=== PATIENT | male | born 1965 | race Caucasian/White ===

== ENCOUNTER 2020-02-03 23:04 | Emergency (ER) | payer SELFPAY ==
[~2020-02-03] VITALS: Ht 162.6 cm; Wt 63.6 kg
--- NOTE | 2020-02-03 23:28 | PHYS DOC ---
General Adult EDM: Chief Complaint: ABDOMINAL PAIN HPI: HPI: The history was obtained from the patient. Patient is a 55-year-old male with PMH significant for appendectomy, methamphetamine use who presents with a chief complaint of right lower quadrant abdominal pain that began suddenly 90 minutes ago. He states he was at rest when the pain began. He states he last smoked methamphetamine earlier this morning. Denies any other drug use. States he has had nausea without vomiting. Denies any dysuria, hematuria, polyuria. Denies history of kidney stone. Denies syncope. States he does not drink alcohol daily. Denies chest pain or shortness of breath. Denies cough or fever. No complaints. Review of Systems: Review of Systems: Constitutional: Denies fever or chills. [] Eyes: Denies change in visual acuity. [] HENT: Denies nasal congestion or sore throat. [] Respiratory: Denies cough or shortness of breath. [] Cardiovascular: Denies chest pain or edema. [] GI: Positive for abdominal pain : Denies dysuria. [] Musculoskeletal: Denies back pain or joint pain. [] Integument: Denies rash. [] Neurologic: Denies headache, focal weakness or sensory changes. [] Endocrine: Denies polyuria or polydipsia. [] Lymphatic: Denies swollen glands. [] Psychiatric: Denies depression or anxiety. [] Heart Score: Risk Factors: Risk Factors: DM, Current or recent (<one month) smoker, HTN, HLP, family history of CAD, obesity. Risk Scores: Score 0 - 3: 2.5% MACE over next 6 weeks - Discharge Home Score 4 - 6: 20.3% MACE over next 6 weeks - Admit for Clinical Observation Score 7 - 10: 72.7% MACE over next 6 weeks - Early Invasive Strategies Physical Exam: PE: Constitutional: Well developed, well nourished, no acute distress, non-toxic appearance. [] HENT: Normocephalic, atraumatic, bilateral external ears normal, oropharynx moist, no oral exudates, nose normal. [] Eyes: PERRLA, EOMI, conjunctiva normal, no discharge. [] Neck: Normal range of motion, no tenderness, supple, no stridor. [] Cardiovascular:Heart rate regular rhythm, no murmur [] Lungs & Thorax: Bilateral breath sounds clear to auscultation [] Abdomen: Soft, nontender, nonacute abdomen. No involuntary guarding or rigidity noted. No acute peritonitis. Skin: Warm, dry, no erythema, no rash. [] Back: No tenderness, no CVA tenderness. [] Extremities: No tenderness, no cyanosis, no clubbing, ROM intact, no edema. [] Neurologic: Alert and oriented X 3, normal motor function, normal sensory function, no focal deficits noted. [] Psychologic: Affect normal, judgement normal, mood normal. [] Current Patient Data: Labs: Laboratory Tests Test 02/03/20 23:43 02/03/20 23:46 02/04/20 00:37 Sodium Level 140 mmol/L Potassium Level 3.8 mmol/L Chloride Level 102 mmol/L Carbon Dioxide Level 29 mmol/L Anion Gap 9 Blood Urea Nitrogen 14 mg/dL Creatinine 1.2 mg/dL Estimated GFR (Cockcroft-Gault) 62.9 BUN/Creatinine Ratio 12 Glucose Level 109 mg/dL Calcium Level 10.3 mg/dL Total Bilirubin 0.7 mg/dL Aspartate Amino Transf (AST/SGOT) 18 U/L Alanine Aminotransferase (ALT/SGPT) 27 U/L Alkaline Phosphatase 133 U/L Total Protein 8.0 g/dL Albumin 3.8 g/dL Albumin/Globulin Ratio 0.9 Lipase 94 U/L Urine Collection Type Unknown Urine Color Yellow Urine Clarity Clear Urine pH 8.5 Urine Specific [place] 1.015 Urine Protein Negative mg/dL Urine Glucose (UA) Negative mg/dL Urine Ketones (Stick) Trace mg/dL Urine Blood Negative Urine Nitrite Negative Urine Bilirubin Negative Urine Urobilinogen Dipstick 0.2 mg/dL Urine Leukocyte Esterase Negative Urine RBC Occ /HPF Urine WBC 0 /HPF Urine Squamous Epithelial Cells None /LPF Urine Amorphous Sediment Present /HPF Urine Bacteria 0 /HPF Urine Mucus Slight /LPF Urine Opiates Screen Neg Urine Methadone Screen Neg Urine Barbiturates Neg Urine Phencyclidine Screen Neg Urine Amphetamine/Methamphetamine Neg Urine Benzodiazepines Screen Neg Urine Cocaine Screen Neg Urine Cannabinoids Screen Pos Urine Ethyl Alcohol Neg White Blood Count 16.7 x10^3/uL Red Blood Count 4.95 x10^6/uL Hemoglobin 15.0 g/dL Hematocrit 43.5 % Mean Corpuscular Volume 88 fL Mean Corpuscular Hemoglobin 30 pg Mean Corpuscular Hemoglobin Concent 35 g/dL Red Cell Distribution Width 13.3 % Platelet Count 323 x10^3/uL Segmented Neutrophils % 62 % Band Neutrophils % 2 % Lymphocytes % 24 % Monocytes % 7 % Eosinophils % 5 % Platelet Estimate Adequate Current Medications Medications (Trade) Dose Ordered Sig/[place] Route PRN Reason Start Time Stop Time Status Last Admin Dose Admin Ringer's Solution 1,000 ml @ 1,000 mls/hr 1X ONCE IV 02/03/20 23:45 02/04/20 00:44 DC 02/04/20 00:18 Ondansetron HCl (Zofran) 4 mg 1X ONCE IVP 02/04/20 00:00 02/04/20 00:09 DC 02/04/20 00:18 Ketorolac Tromethamine (Toradol 15mg Vial) 15 mg 1X ONCE IVP 02/04/20 00:00 02/04/20 00:09 DC 02/04/20 00:18 EKG: EKG: EKG consistent with sinus bradycardia. Ventricular 49 bpm. Intervals normal. [place] normal. No acute ischemic changes appreciated. [] Radiology/Procedures: Radiology/Procedures: [][facility] [address] [place] [address] IMAGING REPORT Signed PATIENT: MARCELA VICTORIA AACCOUNT: [id number] : 1965 LOCATION: ER AGE: 55 SEX: M EXAM STATUS: REG ER ORD. PHYSICIAN: MARIO ABREU DO REASON: RLQ pain. h/o appendectomy. eval for kidney stone PROCEDURE: CT ABDOMEN PELVIS WO CONTRAST Study: CT abdomen/pelvis without intravenous contrast Indication: Right lower quadrant pain. Comparison: None. Technique: Helical CT imaging performed of the abdomen and pelvis without the use of intravenous contrast. Sagittal and coronal reformats were obtained. One or more of the following individualized dose reduction techniques were utilized for this examination: 1. Automated exposure control 2. Adjustment of the mA and/or kV according to patient size 3. Use of iterative reconstruction technique. Findings: Inherently limited evaluation without intravenous contrast. A portion of the study is degraded due to the patient's arms overlying the lower chest/upper abdomen. Chest: No acute abnormality. Liver: Limited assessment due to the absence of contrast and streak artifact. No obvious parenchymal abnormality is identified. Gallbladder/Biliary Tree: A few small, suspended gallstones and possible biliary sludge. No CT findings to suggest acute cholecystitis. Nondilated biliary tree. Pancreas: Unremarkable. Spleen: Within normal limits for size. Adrenal Glands: Unremarkable. Kidneys/Ureters/Bladder: Edematous and prominent right kidney and mild/moderate hydroureteronephrosis in the setting of a 3 mm stone at the ureterovesicular junction. Intrarenal stones at the lower pole the left kidney and a punctate intrarenal stone at the lower pole of the right kidney. No collecting system dilatation on the left. Circumferential urinary bladder wall thickening likely accentuated by underdistention. Reproductive Organs: Central prostatic mineralization. The prostate measures approximately 3.6 cm transverse. Colon: Mild volume well-formed stool burden. Appendix: Surgically absent. Small Bowel: Nonobstructed. Stomach: Distended with ingested material. No gastric wall emphysema. Vasculature: Scattered calcific atherosclerosis. Nonaneurysmal aorta. Lymph Nodes: Within normal limits. Peritoneum and Body Wall: No free fluid or gas. Bones: A few chronic right lumbar transverse process fractures. No acute abnormality. Miscellaneous: None. Impression: 1. Mild/moderate hydroureteronephrosis on the right and findings of obstructive uropathy in the setting of a 3 mm obstructing stone at the ureterovesicular junction. Additional punctate intrarenal stone at the lower pole on the right and a few nonobstructing small stones at the left kidney lower pole. 2. Small calcified gallstones and suspected biliary sludge. No CT findings of acute cholecystitis. Electronically signed by: PRADEEP CALZADA MD (02/04/2020 1:12 AM) [id number] DICTATED and SIGNED BY: PRADEEP CALZADA MD DATE: 02/04/20 0112 Course & Med Decision Making: Course & Med Decision Making Pertinent Labs and Imaging studies reviewed. (See chart for details) Patient is a 55-year-old male who presents with complaint of acute onset right lower quadrant abdominal discomfort. CT imaging reveals a 3 mm obstructing kidney stone with mild to moderate hydronephrosis. Chemistry panel with normal kidney function. Urine without evidence of infection. Mild leukocytosis 16,000. Likely reactive in the setting of his recent drug use. Overall I do f eel he is appropriate for discharge home and outpatient management. On repeat examination he is sleeping comfortably in the exam room. Supportive care measures were given at home. Return precautions discussed and understood. He is agreeable to this plan. Vital signs been stable. Stable for discharge home. Hayleeon Disclaimer: Mirna Disclaimer: This electronic medical record was generated, in whole or in part, using a voice recognition dictation system. Departure Departure Impression: Primary Impression: Right ureteral calculus Disposition: 01 HOME, SELF-CARE Condition: GOOD Referrals: NO PCP (PCP) Patient Instructions: Kidney Stones Additional Instructions: [facility] [address] [place] [address] Please follow-up with your primary care physician in the next 2 to 3 days. Please return emergency department the next 2 to 3 days should her symptoms not improve or worsen. Please follow-up with urology as needed. [facility] [address] [place] [address] [facility] [address] [place] [address] [facility] [address] [place] [address] [facility] [address] [place] [address] [facility] [address] [place] [address] [facility] [address] [place] [address] [facility] [address] [place] [address] [facility] [address] [place] [address] [address] [facility] [address] [place] [address] [facility] [address] [place] [address] Scripts Naproxen (NAPROXEN) 500 Mg Tablet 1 TAB PO BID for pain for 14 Days, #28 TAB 0 Refills Prov: MARIO ABREU DO 02/04/20 Ondansetron Hcl (ZOFRAN) 4 Mg Tablet 4 MG PO PRN TID PRN for NAUSEA, #15 nausea/vomiting Prov: MARIO ABREU DO 02/04/20 Justicifation of Admission Dx: Justifications for Admission: Justification of Admission Dx: N/A MARIO ABREU DO Feb 03, 2020 23:28
[2020-02-03] MEDS ORDERED: IV RINGERS,LACTATED 1000ML 1,000 ML IV ONE (23:45)
[2020-02-04] MEDS ORDERED: KETOROLAC 15 MG/ML VIAL. IVP ONE
[2020-02-04] MEDS ORDERED: ONDANSETRON PF 4 MG/2 ML VIAL. IVP ONE
[2020-02-04 00:02] LABS: CALCIUM 10.3 mg/dL (8.5-10.1); CREATININE 1.2 mg/dL (0.7-1.3); GFR 62.9; POTASSIUM 3.8 mmol/L (3.5-5.1)
[2020-02-04 00:07] LABS: ALBUMIN 3.8 g/dL (3.4-5.0); ALBUMIN/GLOBULIN RATIO 0.9 (1.0-1.7); TOTAL BILIRUBIN 0.7 mg/dL (0.2-1.0)
[2020-02-04 00:14] LABS: BILIRUBIN,URINE NEGATIVE (NEG); CLARITY,URINE CLEAR; COLOR,URINE YELLOW; NITRITE,URINE NEGATIVE (NEG); PH,URINE 8.5 (<5.0-8.0); PROTEIN,URINE NEGATIVE (NEG-TRACE); UROBILINOGEN,URINE 0.2 mg/dL (0.2 mg/dL)
[2020-02-04 00:20] LABS: BARBITURATES NEG (NEG); BENZODIAZEPINES NEG (NEG); CANNABINOIDS POS (NEG); COCAINE NEG (NEG); METHADONE NEG (NEG); OPIATES NEG (NEG); PHENCYCLIDINE NEG (NEG)
[2020-02-04 00:22] LABS: AMPHETAMINE/METHAMPHETAMINE NEG (NEG)
[2020-02-04 00:29] LABS: AMORPHOUS SEDIMENT,UR PRESENT /HPF; BACTERIA,URINE 0 /HPF (0-FEW); RBC,URINE OCC /HPF (0-2); WBC,URINE 0 /HPF (0-4)
[2020-02-04 00:54] LABS: HEMATOCRIT 43.5 % (39.0-53.0); MEAN CORPUSCULAR HEMOGLOBIN 30 pg (25-35); MEAN CORPUSCULAR HGB CONC 35 g/dL (31-37); MEAN CORPUSCULAR VOLUME 88 fL (79-100); PLATELET COUNT 323 x10^3/uL (140-400); RED BLOOD COUNT 4.95 x10^6/uL (4.30-5.70); RED CELL DISTRIBUTION WIDTH 13.3 % (11.5-14.5); WHITE BLOOD COUNT 16.7 x10^3/uL (4.0-11.0)
[2020-02-04 00:55] LABS: % BANDS 2 % (0-9); % EOS 5 % (0-5); % LYMPHS 24 % (24-48); % MONOS 7 % (0-10); % SEGS 62 % (35-66); PLT ESTIMATE ADEQUATE (ADEQUATE)
--- NOTE | 2020-02-04 01:15 | RAD ---
Study: CT abdomen/pelvis without intravenous contrast Indication: Right lower quadrant pain. Comparison: None. Technique: Helical CT imaging performed of the abdomen and pelvis without the use of intravenous contrast. Sagittal and coronal reformats were obtained. One or more of the following individualized dose reduction techniques were utilized for this examination: 1. Automated exposure control 2. Adjustment of the mA and/or kV according to patient size 3. Use of iterative reconstruction technique. Findings: Inherently limited evaluation without intravenous contrast. A portion of the study is degraded due to the patient's arms overlying the lower chest/upper abdomen. Chest: No acute abnormality. Liver: Limited assessment due to the absence of contrast and streak artifact. No obvious parenchymal abnormality is identified. Gallbladder/Biliary Tree: A few small, suspended gallstones and possible biliary sludge. No CT findings to suggest acute cholecystitis. Nondilated biliary tree. Pancreas: Unremarkable. Spleen: Within normal limits for size. Adrenal Glands: Unremarkable. Kidneys/Ureters/Bladder: Edematous and prominent right kidney and mild/moderate hydroureteronephrosis in the setting of a 3 mm stone at the ureterovesicular junction. Intrarenal stones at the lower pole the left kidney and a punctate intrarenal stone at the lower pole of the right kidney. No collecting system dilatation on the left. Circumferential urinary bladder wall thickening likely accentuated by underdistention. Reproductive Organs: Central prostatic mineralization. The prostate measures approximately 3.6 cm transverse. Colon: Mild volume well-formed stool burden. Appendix: Surgically absent. Small Bowel: Nonobstructed. Stomach: Distended with ingested material. No gastric wall emphysema. Vasculature: Scattered calcific atherosclerosis. Nonaneurysmal aorta. Lymph Nodes: Within normal limits. Peritoneum and Body Wall: No free fluid or gas. Bones: A few chronic right lumbar transverse process fractures. No acute abnormality. Miscellaneous: None. Impression: 1. Mild/moderate hydroureteronephrosis on the right and findings of obstructive uropathy in the setting of a 3 mm obstructing stone at the ureterovesicular junction. Additional punctate intrarenal stone at the lower pole on the right and a few nonobstructing small stones at the left kidney lower pole. 2. Small calcified gallstones and suspected biliary sludge. No CT findings of acute cholecystitis. Electronically signed by: PRADEEP CALZADA MD (02/04/2020 1:12 AM) [place] [id number]
[2020-02-04] MEDS ORDERED: ONDA4TAB7 PO (01:29)
[2020-02-04] MEDS ORDERED: NAPR-514 PO (01:29)
[2020-02-04 01:45] VITALS: BP 119/71
--- NOTE | 2020-02-04 02:54 | EKG ---
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
== END 2020-02-04 02:03 | disposition home or self-care (01) ==
LOC: ER 23:04
DX: N13.2 Hydronephrosis with renal and ureteral calculous obstruction (principal); N13.9 Obstructive and reflux uropathy, unspecified; R00.1 Bradycardia, unspecified; Z90.89 Acquired absence of other organs
CPT/HCPCS: 36415; 74176; 80053; 80307; 81001; 83690; 85007; 85025; 93005; 96361; 96374; 96375; 99285; J1885; J2405; J7120